=== PATIENT | male | born 1955 | race Caucasian/White ===

== ENCOUNTER 2016-06-13 14:19 | Emergency (ER) | payer MEDICAID, OTHER ==
[2016-06-13 14:32] VITALS: RESP 16; O2SAT 98
--- NOTE | 2016-06-13 15:11 | CPEKG ---
Heart Rate: 81 RR Interval: 741 P-R Interval: 180 QRSD Interval: 92 QT Interval: 380 QTC Interval: 441 P Mesa: 50 QRS Mesa: 31 T Wave Mesa: 33 EKG Severity - NORMAL ECG - EKG Impression: SINUS RHYTHM Electronically Signed By: Nettie Heart 13-Jun-2016 21:23:04
--- NOTE | 2016-06-13 15:24 | EDPHY ---
H & P Smoking Status: Never smoked Time Seen by Provider: 06/13/16 15:11 HPI/ROS: CHIEF COMPLAINT: Syncope, face laceration. HISTORY OF PRESENT ILLNESS: The patient is a 60-year-old male with a history of hypertension who presents after a syncopal episode last night when he got up from bed to use the bathroom. He does remember feeling dizzy prior to fainting. He believes that he fainted from standing up too quickly. He is now complaining of laceration and bruising to the right side of his face. He denies headache, neck pain, dizziness, lightheadedness, or other complaints. He has had multiple syncopal episodes before. He denies other complaints. REVIEW OF SYSTEMS: A complete 10-point review of systems was performed and is negative except for those items mentioned in the HPI. (Nettie Heart) Past Medical/Surgical History: Hypertension. (Nettie Heart) Social History: Nonsmoker, every day drinker. (Nettie Heart) Physical Exam: General Appearance: Alert, no distress Head: Laceration, ecchymosis to right side of face lateral to right eye. Eyes: No conjunctival erythema, PERRLA, EOMI ENT, Mouth: No hemotympanum, no oral trauma, no bony tenderness Neck: Non-tender, full range of motion without pain Respiratory: No chest wall tenderness, lungs clear bilaterally Cardiovascular: Regular rate and rhythm Abdomen: Abdomen is soft and non tender Skin: No lacerations, no abrasions Back: No midline T/L/S tenderness Extremities: Pelvis is stable and nontender; no extremity tenderness or deformity, full range of motion without pain Neurological: A&Ox3, normal motor function, normal sensory exam, cranial nerves intact Psychiatric: Mood and affect normal (Nettie Heart) Constitutional: Initial Vital Signs Temperature (C) 36.6 C 06/13/16 14:30 Heart Rate 90 06/13/16 14:30 Respiratory Rate 16 06/13/16 14:30 Blood Pressure 171/109 H 06/13/16 14:30 O2 Sat (%) 98 06/13/16 14:30 O2 Delivery Mode Room Air Allergies/Adverse Reactions: No Known Allergies Allergy (Unverified 06/13/16 14:27) Home Medications: Medication Instructions Recorded Aspirin 81mg (*) 06/13/16 Lisinopril 06/13/16 Medical Decision Making - Diagnostics EKG Interpretation: EKG interpreted by me reveals normal sinus rhythm, normal axis, normal intervals , ST and T segments normal. Interpretation: normal EKG (Nettie Heart) Procedures: After verbal consent was obtained and risks and benefits explained, the right lateral supraorbital laceration was anesthetized using a total of 4 ml of 0.5% Marcaine with epinephrine. Lac then irrigated per protocol by histology technician. Under sterile procedure, the wound was explored to its base with a gloved finger and no foreign body was identified. No deep structure identified. Wound was then draped and sterile procedure followed during laceration repair. Wound was repaired using # 6, 6-0 running Prolene sutures. After repair, laceration cleansed, bacitracin and sterile dressing applied. Procedure performed by myself. Procedure was simple. Pt tolerated the procedure well. (Tania Infante) ED Course/Re-evaluation: This patient presents after a syncopal episode, most likely vasovagal. Stat EKG reveals no evidence of dysrhythmia or ischemia. He does not have a headache after the injury and I do not suspect traumatic intracranial hemorrhage or fracture. The laceration is now 13 hours old. I discussed with the patient the possibility of wound infection, though given the gaping nature of the facial laceration, I feel it is most prudent to suture the laceration. ( Nettie Heart) Differential Diagnosis: Differential diagnosis includes though is not limited to cardiac dysrhythmia, CVA, TIA, GI bleed, sepsis, hypoglycemia. (Nettie Heart) - Data Points Laboratory Results: Laboratory Results 06/13/16 16:00 06/13/16 16:00 Medications Given: Discontinued Medications Acetaminophen (Tylenol) 1,000 mg PO EDNOW ONE Stop: 06/13/16 16:49 Last Admin: 06/13/16 16:52 Dose: 1,000 mg Departure - Departure Disposition: Home, Routine, Self-Care Clinical Impression: Facial laceration Qualifiers: Qualifier Code: (S01.81XA) Laceration without foreign body of other part of head, initial encounter Syncope Qualifiers: Qualifier Code: (R55) Syncope and collapse Condition: Good Instructions: Syncope (ED), Facial Laceration (ED), Head Injury (ED) Additional Instructions: Keep wound clean and avoid prolonged immersion of stitches in water. Return in 5 days for suture removal. Return to the emergency department for any serious worsening of condition. Referrals: DAVEY DINERO [Primary Care Provider] - As per Instructions Report Scribed for: Nettie Heart Report Scribed by: Rajinder Aguilar Date of Report: 06/13/16 Time of Report: 15:24 Physician Review and Approval Statement: 06/13/16 15:24 Portions of this note were transcribed by a medical billing instructor. I personally performed a history, physical exam, medical decision making, and confirmed accuracy of information the transcribed note. (Nettie Heart)
[2016-06-13 16:11] LABS: ADD DIFF? NO; ADD MORPH? NO; ADD SCAN? NO; ATYPICAL LYMPHOCYTE FLAG 10 (0-99); FRAGMENT RBC FLAG 0 (0-99); HEMATOCRIT 36.5 % (40.0-51.0); HEMOGLOBIN 12.9 g/dL (13.7-17.5); LEFT SHIFT FLG 0 (0-99); LIPEMIA HEMOLYSIS FLAG 90 (0-99); MEAN CELL HEMOGLOBIN 32.2 pg (27.9-34.1); MEAN CELL HEMOGLOBIN CONCENTR. 35.3 g/dL (32.4-36.7); MEAN PLATELET VOLUME 9.8 fL (8.7-11.7); PLATELET CLUMPS FLAG 0 (0-99); PLATELET COUNT 204 10^3/uL (150-400); RED BLOOD CELL COUNT 4.01 10^6/uL (4.40-6.38); RED CELL DISTRIBUTION WIDTH 12.1 % (11.5-15.2)
[2016-06-13 16:20] LABS: ANION GAP 10 mEq/L (8-16); CARBON DIOXIDE 26 mEq/l (22-31); CHLORIDE 99 mEq/L (97-110); CREATININE 0.4 mg/dL (0.7-1.3); GLOMERULAR FILTRATION RATE > 60; GLUCOSE 89 mg/dL (70-100); POTASSIUM 4.7 mEq/L (3.5-5.2); SODIUM 135 mEq/L (134-144)
[2016-06-13 16:32] LABS: TROPONIN I < 0.012 ng/mL (0-0.034)
[2016-06-13] MEDS ORDERED: ACETAMINOPHEN 500 MG TAB PO ONE (16:48)
[2016-06-13 17:24] VITALS: BP 168/98; PULSE 92; TEMP 97.3
== END 2016-06-18 16:03 | disposition home or self-care (01) ==
PROC: 0HQ1XZZ Repair Face Skin, External Approach (ICD-10-PCS; principal; 2016-06-13)
DX: S01.81XA Laceration without foreign body of other part of head, initial encounter (principal); R55 Syncope and collapse; I10 Essential (primary) hypertension; Z79.82 Long term (current) use of aspirin; X58.XXXA Exposure to other specified factors, initial encounter